=== PATIENT | male | born 1975 | race Caucasian/White ===

== ENCOUNTER 2017-01-09 22:29 | Emergency (ER) | payer BC ==
[2017-01-09 22:33] VITALS: BP 136/77; PULSE 93; TEMP 97.4; BMI 29.6
--- NOTE | 2017-01-09 23:55 | PDOC ---
History of Present Illness - General Chief Complaint: Palpitations Stated Complaint: STROKE LIKE SYMPTOMS Time Seen by Provider: 01/09/17 23:09 - History of Present Illness Initial Comments: 01/10/17 01:38 41yo man with no significant PMH who presents with 3 successive episodes of acute onset L sided chest pain. The patient was driving home around 6pm when he experienced two successive episodes of non-radiating, stabbing CP lasting for a few seconds each and occurring a few minutes apart. He reports the 2nd episode extremely painful, nearly causing him to "blackout". He had a 3rd episode of CP also lasting a few seconds, but not as severe and the second episode. No associated n/v, LOC. No family history of cardiac disease or sudden/unexplained deaths. Denies trauma to the area. Reports having 6 beers before leaving work. Smokes socially. Denies cocaine or other drug use. Past History - Past Medical History Allergies/Adverse Reactions: Allergies Allergy/AdvReac Type Severity Reaction Status Date / Time No Known Allergies Allergy Verified 01/09/17 22:33 Home Medications: Ambulatory Orders NK [No Known Home Medication] 01/09/17 COPD: No Other medical history: denies - Suicide/Smoking/Psychosocial Hx Smoking History: Current some day smoker Number of Cigarettes Smoked Daily: 1 Information on smoking cessation initiated: No Hx Alcohol Use: Yes *Physical Exam - Vital Signs Last Vital Signs Temp Pulse Resp BP Pulse Ox 97.4 F L 93 H 18 136/77 99 01/09/17 22:31 01/09/17 22:31 01/09/17 22:31 01/09/17 22:31 01/09/17 22:31 - Physical Exam General Appearance: Yes: Appropriately Dressed, Apparent Distress HEENT: positive: Normal ENT Inspection Respiratory/Chest: positive: Lungs Clear, Normal Breath Sounds Cardiovascular: positive: Regular Rhythm, Regular Rate, S1, S2 Gastrointestinal/Abdominal: positive: Normal Bowel Sounds, Soft. negative: Tenderness Extremity: positive: Normal Inspection Neurologic: positive: Fully Oriented, Alert Heart Score/ECG Review - History History: Slightly suspicious - Electrocardiogram EKG: Non specific repolarization disturbance - Age Age: </= 45 - Risk Factors Risk Factors Heart Score: Yes Smoking History - Troponin Troponin: </= normal limit - ECG Intrepretation Rhythm: Regular Rhythm - [place]: Normal - ST and T Flattened T Waves: Yes - ECG Impressions Normal ECG: No Comment:: 01/10/17 03:02 NSR, rate 86. Normal axis and intervals. T-wave inversion in lead III, aVF and T -wave flattening in V5 through V6. No ST elevations. ED Treatment Course - LABORATORY CBC & Chemistry Diagram: 01/10/17 00:45 01/10/17 00:45 Medical Decision Making - Medical Decision Making 01/10/17 02:51 41yo man who presents with non-radiating L sided CP that has now resolved. Will do basic lab work-up, including CBC, CMP, and Trops x2. EKG and CXR to assess for structural abnormalities. 01/10/17 02:59 CBC, BMP 01/10/17 00:45 01/10/17 00:45 Troponin, BNP 01/10/17 00:45 Troponin I < 0.02 01/10/17 03:00 CXR revealed no cardiomegaly, pleural effusion or focal consolidation. First Troponin is negative. Heart Score of 2. If second Troponin is negative, will discharge home. 01/10/17 04:34 2nd Troponin was negative. Patient has remained asymptomatic. Low suspicion for cardiac etiology of pain, and is likely of musculoskeletal origin. All physical exam findings, laboratory tests, and diagnoses were explained to the patient. All questions were answered. Patient was discharged home with instructions to make an appointment with his PCP within the next few days. *DC/Admit/Observation/Transfer Diagnosis at time of Disposition: Chest pain - Referrals - Patient Instructions - Post Discharge Activity
--- NOTE | 2017-01-10 00:43 | PDOC ---
Attending Attestation - Resident Resident Name: Florinda Eisenberg - ED Attending Attestation I have performed the following: I have examined & evaluated the patient, The case was reviewed & discussed with the resident, I agree w/resident's findings & plan, Exceptions are as noted - HPI HPI: 01/10/17 00:39 41yo M no PMH p/w 3 episodes of CP. First episode was at 645pm while driving. Second two episodes occurred shortly there after. Each episode lasted for a few seconds and self resolved. Pain was left sided, non radiating, stabbing, intermittent. Reports feeling like he would pass out with one of the episodes which prompted him to come to the ED. Patient is currently asymptomatic. He's never had similar symptoms in the past. Denies any personal or family history of cardiac disease. Reports drinking 6 beers a few hours prior to the pain occurring. Denies associated nausea, vomiting, diaphoresis, shortness of breath. Pain was not pleuritic when it occurred. He denies any recent travel or immobility. Denies trauma, fevers, chills, coughing. Patient reports a normal annual physical one year ago. - Physicial Exam PE: 01/10/17 01:42 GENERAL: Awake, alert, and fully oriented, in no acute distress HEAD: No signs of trauma EYES: PERRLA, EOMI, sclera anicteric, conjunctiva clear ENT: Auricles normal inspection, hearing grossly normal, nares patent, oropharynx clear without exudates. Moist mucosa NECK: Normal ROM, supple, no lymphadenopathy, JVD, or masses LUNGS: Breath sounds equal, clear to auscultation bilaterally. No wheezes, and no crackles HEART: Regular rate and rhythm, normal S1 and S2, no murmurs, rubs or gallops ABDOMEN: Soft, nontender, normoactive bowel sounds. No guarding, no rebound. No masses EXTREMITIES: Normal range of motion, no edema. No clubbing or cyanosis. No cords, erythema, or tenderness NEUROLOGICAL: Normal speech, cranial nerves intact, negative pronator drift, 5/ 5 strength in all 4 extremities, normal sensation to light touch in all 4 extremities, normal cerebellar exam, normal gait, normal reflexes and tone SKIN: Warm, Dry, normal turgor, no rashes or lesions noted. - Medical Decision Making 01/10/17 01:43 41-year-old male with no significant past medical history presents with 3 second long episodes of left-sided chest pain. Vitals are unremarkable. Exam is unremarkable. Patient is low risk for ACS with a heart score of 2 however given T-wave inversions in 3 and aVF and flattening in V5 and V6 will check 2 troponins to rule the patient out. Will also obtain a chest x-ray for any structural abnormalities and basic labs. 01/10/17 04:14 Labs and chest x-ray unremarkable. Troponin 2 negative. Patient remains asymptomatic in the emergency department. Pain is likely musculoskeletal. All results discussed with the patient. The patient requests discharge as he feels much better. I discussed the physical exam findings, ancillary test results and final diagnoses with the patient. I answered all of the patient's questions. The patient was satisfied with the care received and felt comfortable with the discharge plan and treatment plan. The patient will call their primary care physician within 24 hours to arrange follow-up and will return to the Emergency Department with any new, persistent or worsening symptoms. Heart Score/ECG Review - History History: Slightly suspicious - Electrocardiogram EKG: Non specific repolarization disturbance - Age Age: </= 45 - Risk Factors Risk Factors Heart Score: Yes Smoking History Based on the list above the patient has:: 1-2 risk factors - Troponin Troponin: </= normal limit - Score Heart Score - Total: 2 #1 01/10/17 01:42 Twelve-lead EKG was performed and reviewed by me. Normal sinus rhythm, rate 86. Normal axis and intervals. T-wave inversion in lead 3, aVF and T-wave flattening in V5 through V6. No ST elevations.
[2017-01-10 00:56] LABS: BASOPHIL 0.6 % (0-2.0); EOSINOPHIL 1.5 % (0-4.5); MCH 31.7 pg (25.7-33.7); MCHC 34.2 g/dl (32.0-35.9); MEAN CELL VOLUME 92.8 fl (80-96); MEAN PLT VOLUME 10.7 fl (7.5-11.1); PLATELET COUNT 191 K/MM3 (134-434); RDW 13.4 % (11.9-15.9); WHITE BLOOD COUNT 8.3 K/mm3 (4.0-10.0)
[2017-01-10 01:22] LABS: ALBUMIN 4.2 g/dl (3.4-5.0); ANION GAP 12 (8-16); BILIRUBIN,TOTAL 0.3 mg/dL (0.2-1.0); CALCIUM 8.5 mg/dL (8.5-10.1); CO2 25 mmol/L (21-32); CREATININE 0.8 mg/dL (0.7-1.3); GLUCOSE,RANDOM 102 mg/dL (74-106); SGOT/AST 26 U/L (15-37); SGPT/ALT 59 U/L (12-78); TOT PROT 7.5 g/dl (6.4-8.2)
[2017-01-10 01:23] LABS: ALK PHOS 108 U/L (45-117)
[2017-01-10 01:56] LABS: CPK 206 IU/L (39-308); TROPONIN I < 0.02 ng/ml (0.00-0.05)
--- NOTE | 2017-01-10 09:21 | EKG ---
Test Reason : Blood Pressure : / mmHG Vent. Rate : 086 BPM Atrial Rate : 086 BPM P-R Int : 128 ms QRS Dur : 088 ms QT Int : 376 ms P-R-T Axes : 014 022 -06 degrees QTc Int : 449 ms NORMAL SINUS RHYTHM NONSPECIFIC T WAVE ABNORMALITY ABNORMAL ECG NO PREVIOUS ECGS AVAILABLE Confirmed by HEMA LOPEZ MD ([id number]) on 01/10/2017 9:20:44 AM Referred By: Confirmed By:HEMA LOPEZ MD
== END 2017-01-10 05:33 | disposition home or self-care (01) ==
LOC: JER 22:29 → UNDOADMOB 23:42 → JERBED 23:42 → JER 01-10 05:33
DX: R07.89 Other chest pain (principal); Z72.0 Tobacco use
CPT/HCPCS: 36415; 71020-TC; 80053; 82550; 82553; 84484; 85025; 93005; 93010; 99281-25